=== PATIENT | male | born 1955 | race Asian ===

== ENCOUNTER 2017-06-14 10:11 | Emergency (ER) | payer OTHER ==
[2017-06-14 10:17] VITALS: BP 173/98; PULSE 81; TEMP 98.1; BMI 27.4
--- NOTE | 2017-06-14 10:23 | PDOC ---
History of Present Illness - General History Source: Patient Exam Limitations: No Limitations - History of Present Illness Initial Comments: 06/14/17 10:58 The patient is a 61 year old male with a significant past medical history of CABG, HTN, HLD, who presents to the ED with right sided rib pain and back pain since last week. Patient states he was at work last week when he fell off a ladder and lost consciousness. He denies head pain, neck pain. He went to the hospital but doesn't remember what tests were done on him. Patient denies chest pain, SOB, fever, chills, nausea, vomiting, diarrhea. Patient works as an electrical wiring lineman. Patient Smokes cigarettes. Patient denies drug use. Patient occasionally drinks alcohol. <Bahman Nguyen - Last Filed: 06/14/17 12:35> <Bj Dickerson - Last Filed: 06/14/17 12:59> - General Chief Complaint: Chest Pain Stated Complaint: SIDE PAIN Time Seen by Provider: 06/14/17 10:22 Past History <Bahman Nguyen - Last Filed: 06/14/17 12:35> - Past Medical History Cardiac Disorders: Yes (TRIPLE BYPASS) HTN: Yes - Surgical History Cardiac Surgery: Yes (CABG) - Psycho/Social/Smoking Cessation Hx Anxiety: No Suicidal Ideation: No Smoking Status: Yes Smoking History: Current every day smoker Have you smoked in the past 12 months: Yes Number of Cigarettes Smoked Daily: 20 Information on smoking cessation initiated: No 'Breaking Loose' booklet given: 06/10/15 Hx Alcohol Use: No Substance Use Type: None <Bj Dickerson - Last Filed: 06/14/17 12:59> - Past Medical History Allergies/Adverse Reactions: Allergies Allergy/AdvReac Type Severity Reaction Status Date / Time clindamycin AdvReac Intermediate Verified 06/14/17 10:17 Home Medications: Ambulatory Orders Aspirin [ASA -] 81 mg PO DAILY 04/21/16 Amlodipine Besylate [Norvasc -] 2.5 mg PO DAILY 06/14/17 Atorvastatin Ca [Lipitor] 40 mg PO DAILY 06/14/17 Ibuprofen [Motrin -] 600 mg PO QID #28 tablet 06/14/17 Metoprolol Succinate [Toprol Xl] 50 mg PO DAILY 06/14/17 Naproxen [Naprosyn -] 500 mg PO BID 06/14/17 Review of Systems - Review of Systems Able to Perform ROS?: Yes Comments:: 06/14/17 10:59 GENERAL/CONSTITUTIONAL: No fever or chills. No weakness. HEAD, EYES, EARS, NOSE AND THROAT: No change in vision. No ear pain or discharge. No sore throat. CARDIOVASCULAR: No chest pain or shortness of breath. RESPIRATORY: No cough, wheezing, or hemoptysis. GASTROINTESTINAL: No nausea, vomiting, diarrhea or constipation. GENITOURINARY: No dysuria, frequency, or change in urination. MUSCULOSKELETAL: + right sided rib pain. + back pain. No joint or muscle swelling or pain. No neck pain. SKIN: No rash NEUROLOGIC: No headache, vertigo, loss of consciousness, or change in strength/ sensation. ENDOCRINE: No increased thirst. No abnormal weight change. HEMATOLOGIC/LYMPHATIC: No anemia, easy bleeding, or history of blood clots. ALLERGIC/IMMUNOLOGIC: No hives or skin allergy. <Bahman Nguyen - Last Filed: 06/14/17 12:35> *Physical Exam - Vital Signs Last Vital Signs Temp Pulse Resp BP Pulse Ox 98.1 F 81 18 173/98 99 06/14/17 10:14 06/14/17 10:14 06/14/17 10:14 06/14/17 10:14 06/14/17 10:42 - Physical Exam Comments: 06/14/17 10:59 GENERAL: Awake, alert, and fully oriented, in no acute distress HEAD: No signs of trauma EYES: PERRLA, EOMI, sclera anicteric, conjunctiva clear ENT: Auricles normal inspection, hearing grossly normal, nares patent, oropharynx clear without exudates. Moist mucosa NECK: Normal ROM, supple, no lymphadenopathy, JVD, or masses LUNGS: Breath sounds equal, clear to auscultation bilaterally. No wheezes, and no crackles HEART: Regular rate and rhythm, normal S1 and S2, no murmurs, rubs or gallops RIBS: Tender to the right anterior and posterior ribs 2 through 5. ABDOMEN: Soft, nontender, normoactive bowel sounds. No guarding, no rebound. No masses EXTREMITIES: Normal range of motion, no edema. No clubbing or cyanosis. No cords, erythema, or tenderness NEUROLOGICAL: Cranial nerves II through XII grossly intact. Normal speech, normal gait SKIN: Warm, Dry, normal turgor, no rashes or lesions noted. <Bahman Nguyen - Last Filed: 06/14/17 12:35> - Vital Signs Last Vital Signs Temp Pulse Resp BP Pulse Ox 98.1 F 81 18 173/98 99 06/14/17 10:14 06/14/17 10:14 06/14/17 10:14 06/14/17 10:14 06/14/17 10:14 <Bj Dickerson - Last Filed: 06/14/17 12:59> ED Treatment Course - RADIOLOGY Radiology Studies Ordered: 06/14/17 12:37 EXAM#: TYPE/EXAM: RESULT: [id number] RAD/RIBS RIGHT SIDE Right RIBS: Blunt trauma. Possible fracture or pneumothorax. Images of the right ribs reveals an acute fracture of the right sixth rib with other old rib deformities. A pneumothorax, pleural fluid or atelectasis is not seen. There are sternal sutures and degenerative spine changes. Impression: Acute right sixth rib anterior fracture. Previous OHS. Degenerative spine changes. Other old rib deformities. Reported By: <Bahman Nguyen - Last Filed: 06/14/17 12:35> *DC/Admit/Observation/Transfer - Attestations Scribe Attestion: 06/14/17 10:59 Documentation prepared by Bahman Nguyen, acting as medical instrument cable fabricator for Bj Dickerson MD/DO. <Bahman Nguyen - Last Filed: 06/14/17 12:35> - Attestations Physician Attestion: 06/14/17 10:22 I, Dr. Bj Dickerson, attest that this document has been prepared under my direction and personally reviewed by me in its entirety. I further attest, that it accurately reflects all work, treatment, procedures and medical decision -making performed by me. <Bj Dickerson - Last Filed: 06/14/17 12:59> Diagnosis at time of Disposition: Rib fracture Qualifiers: Encounter type: subsequent encounter Rib fracture type: single rib Fracture type: closed Laterality: right Fracture healing: with routine healing Qualified Code(s): S22.31XD - Fracture of one rib, right side, subsequent encounter for fracture with routine healing - Discharge Dispostion Disposition: HOME Condition at time of disposition: Good - Prescriptions Prescriptions: Ibuprofen [Motrin -] 600 mg PO QID #28 tablet - Referrals Referrals: Donte Vazquez MD [Primary Care Provider] - - Patient Instructions Printed Discharge Instructions: DI for Rib Fracture Additional Instructions: Mr Escobar - Sorry to tell you that you broke the sixth rib on the right side. It is going to take six months to heal. Use the incentive spirometer several times a day so that you do not get pneumonia. Use the motrin for pain. Return to us if worse. See your doctor this week. Off work for a few days. Best- Dr. Bj Dickerson - Post Discharge Activity Work/School Note: Back to Work
[2017-06-14] MEDS ORDERED: OXYCODONE/APAP 5/325MG COMBO TABLET PO ONE (10:54)
[2017-06-14] MEDS ORDERED: ONDANSETRON *ODT* 4 MG TABLET SL ONE (10:54)
[2017-06-14] MEDS ORDERED: OXYCODONE/APAP 5/325MG COMBO TABLET ONE (11:12)
[2017-06-14] MEDS ORDERED: ONDANSETRON *ODT* 4 MG TABLET ONE (11:12)
== END 2017-06-14 13:25 | disposition home or self-care (01) ==
LOC: JER 10:11
DX: S22.31XD Fracture of one rib, right side, subsequent encounter for fracture with routine healing (principal); W11.XXXD Fall on and from ladder, subsequent encounter; Y93.H3 Activity, building and construction; Y92.89 Other specified places as the place of occurrence of the external cause; Y99.0 Civilian activity done for income or pay
CPT/HCPCS: 71020-TC; 71101-TC-RT; 99284-25

== ENCOUNTER 2020-09-24 11:49 | Emergency (ER) | payer OTHER ==
[2020-09-24] MEDS ORDERED: ONDANSETRON 4 MG/2 ML VIAL IVPUSH ONE (11:51)
[2020-09-24] MEDS ORDERED: SODIUM CHLORIDE 0.9% 1000 ML INFUS.BAG IV ONE (11:51)
[2020-09-24] MEDS ORDERED: FAMOTIDINE 20 MG/50 ML IVPB 20 MG/50 ML MG IVPB ONE ×2 (11:51→12:10)
[2020-09-24] MEDS ORDERED: ASPIRIN 81 MG CHEWABLE TABLETS PO ONE (11:51)
[2020-09-24] MEDS ORDERED: CLOPIDOGREL BISULFATE 300 MG TABLET PO ONE (11:53)
[2020-09-24] MEDS ORDERED: HEPARIN NA (PORCINE) 5,000 UNITS/ML 1ML VIAL IVPUSH ONE (11:53)
[2020-09-24] MEDS ORDERED: ASPIRIN 81 MG CHEWABLE TABLETS ONE (11:54)
[2020-09-24] MEDS ORDERED: CLOPIDOGREL BISULFATE 300 MG TABLET ONE (11:54)
[2020-09-24] MEDS ORDERED: ONDANSETRON 4 MG/2 ML VIAL ONE (11:54)
[2020-09-24] MEDS ORDERED: ATORVASTATIN CA 80 MG TABLET (FP) PO ONE (11:57)
[2020-09-24 11:58] VITALS: BMI 25.8
[2020-09-24] MEDS ORDERED: HEPARIN NA (PORCINE) 5,000 UNITS/ML 1ML VIAL ONE (11:58)
[2020-09-24] MEDS ORDERED: ATORVASTATIN CA 80 MG TABLET (FP) ONE (11:58)
[2020-09-24] MEDS ORDERED: HEPARIN INFUSION - 25,000 UNITS/500 ML INFUS.BAG IVPB ONE (12:06)
[2020-09-24] MEDS ORDERED: morphine CARPU-JECT 2 MG/1 ML DISP.SYRIN IVPUSH ONE ×2 (12:15→12:22)
[2020-09-24] MEDS ORDERED: HEPARIN - 25,000 UNIT in SODIUM CHLORIDE 495 ML IV SCH (12:15)
[2020-09-24] MEDS ORDERED: morphine SULFATE 4 MG/ML VIAL ONE ×2 (12:15→12:24)
--- NOTE | 2020-09-24 12:15 | PDOC ---
History of Present Illness - General Chief Complaint: Chest Pain Stated Complaint: CHEST PAIN Time Seen by Provider: 09/24/20 11:50 - History of Present Illness Initial Comments: 09/24/20 11:55 65 year old male with a significant past medical history of TX s/p CABG (2008), HTN, HLD, presents with one hour of chest pain. Pain started when he was digging with a shovel, was reduced when he rested, but persisted. Substernal, radiating to both arms. Feels like prior TX. Associated with SOB and nausea, with one episode of NBNB emesis witness in ED. Follows at [facility]. ROS GENERAL/CONSTITUTIONAL: No fever or chills HEAD, EYES, EARS, NOSE AND THROAT: No change in vision. No ear pain CARDIOVASCULAR: chest pain and shortness of breath RESPIRATORY: No cough or hemoptysis. GASTROINTESTINAL: nausea, vomiting GENITOURINARY: No dysuria, frequency MUSCULOSKELETAL: No joint or muscle pain SKIN: No rash NEUROLOGIC: No headache or loss of consciousness ENDOCRINE: No increased thirst. No abnormal weight change HEMATOLOGIC/LYMPHATIC: No anemia, easy bleeding ALLERGIC/IMMUNOLOGIC: No hives or skin allergy. PE GENERAL: Awake, alert, and fully oriented, diaphoretic, pale, vomiting, SOB HEAD: No signs of trauma, normocephalic, atraumatic EYES: PERRLA, EOMI, sclera anicteric, conjunctiva clear ENT: Auricles normal inspection, hearing grossly normal, nares patent, oropharynx clear without exudates. Moist mucosa NECK: Normal ROM, supple, no lymphadenopathy, JVD, or masses LUNGS: mild distress, clear to auscultation bilaterally HEART: Regular rate and rhythm, normal S1 and S2, no murmurs, rubs or gallop ABDOMEN: Soft, nontender, normoactive bowel sounds. No guarding, no rebound. No masses EXTREMITIES : Normal inspection, Normal range of motion, no edema. No clubbing or cyanosis. NEUROLOGICAL: Normal speech, no focal sensorimotor deficits SKIN: Warm, diaphoretic, no rashes or lesions noted Vital Signs Temp Pulse Resp BP Pulse Ox 74 22 H 93/76 09/24/20 11:49 09/24/20 11:49 09/24/20 11:49 MDM: 65 year old male with a significant past medical history of TX s/p CABG (2008), HTN, HLD, presents with one hour of chest pain. Vitals notable for RR 22 and BP 93/76. Pulse on monitor drops to 50s and appears to be in 2nd degree AV block type I EKG at 12:50: 2nd degree AV block type I, rate 52, non-specific intraventricular block, ST elevation in aVR, ST depressions in I, V1-V6 R-sided EKG: at 12:56: NSR, rate 74, non-specific intraventricular block, ST elevation in aVR, ST depressions in Q3G-P6Z -EKG concerning for posterior wall TX -CBC, CMP, trops, coags CXR -1000 NS bolus ASA 324, plavix 300, lipitor 80, pepcid 20, zofran 4, morphine 2, heparin 5000 bolus and drip at -transfer to [facility]. Dr. Ayon spoke with the accepting facility 09/24/20 12:20 No improvement in chest pain, no continued vomiting Vital Signs - 8 hr 09/24/20 09/24/20 09/24/20 11:49 11:50 11:58 Pulse Rate 74 84 Pulse Rate [ 79 Apical] Respiratory 22 H 22 H Rate Blood Pressure 93/76 Blood Pressure 160/87 [Right Arm] O2 Sat by Pulse 100 Oximetry (%) 09/24/20 09/24/20 09/24/20 12:13 12:14 12:19 Pulse Rate 84 85 Pulse Rate [ 84 Apical] Respiratory 28 H 26 H Rate Blood Pressure 146/93 Blood Pressure 140/86 [Right Arm] O2 Sat by Pulse 99 99 Oximetry (%) Receiving doctor requests sublingual nitro and additional 2mg morphine CXR: no acute chest pathology Labs: pending 09/24/20 12:23 Patient transferred Past History - Medical History Allergies/Adverse Reactions: Allergies Allergy/AdvReac Type Severity Reaction Status Date / Time clindamycin AdvReac Intermediate Verified 09/24/20 12:18 Home Medications: Ambulatory Orders Aspirin [ASA -] 81 mg PO DAILY 04/21/16 Amlodipine Besylate [Norvasc -] 2.5 mg PO DAILY 06/14/17 Atorvastatin Ca [Lipitor] 40 mg PO DAILY 06/14/17 Ibuprofen [Motrin -] 600 mg PO QID #28 tablet 06/14/17 Metoprolol Succinate [Toprol Xl] 50 mg PO DAILY 06/14/17 Naproxen [Naprosyn -] 500 mg PO BID 06/14/17 Cardiac Disorders: Yes (TRIPLE BYPASS) HTN: Yes - Surgical History Cardiac Surgery: Yes (CABG) - Psycho-Social/Smoking History Smoking Status: Yes Smoking History: Current every day smoker Have you smoked in the past 12 months: Yes Number of Cigarettes Smoked Daily: 20 'Breaking Loose' booklet given: 06/10/15 ED Treatment Course - LABORATORY CBC & Chemistry Diagram: 09/24/20 12:05 Medical Decision Making - Critical Care Time Total Critical Care Time (minutes): 35 Critical Care Statement: The care of this patient involved high complexity decision making to prevent further life threatening deterioration of the patient's condition and/or to evaluate & treat vital organ system(s) failure or risk of failure. Discharge - Discharge Information Problems reviewed: Yes Clinical Impression/Diagnosis: STEMI (ST elevation myocardial infarction) Condition: Critical Disposition: TRANSFER ACUTE CARE/OTHER HOSP - Follow up/Referral - Patient Discharge Instructions - Post Discharge Activity
--- NOTE | 2020-09-24 12:18 | PDOC ---
Attending Attestation - Resident Resident Name: Hitesh Celeste - ED Attending Attestation I have performed the following: I have examined & evaluated the patient, The case was reviewed & discussed with the resident, I agree w/resident's findings & plan, Exceptions are as noted - HPI HPI: 09/24/20 12:05 65yo male with hx of cad, cabg, htn, hld presents for 1 hour of substernal cp. Cp is assoc with sob, diaphoresis, nausea and vomiting. Pt states he did not take his meds at home. Pt arrives dusky, actively vomiting, and in acute distress. - Physicial Exam PE: 09/24/20 12:07 Gen: diaphoretic, actively vomiting, dusky, pale heart: +s1s2 reg lungs: cta b/l abd: soft, nt/nd +bs ext: no c/c/e, pulses intact radial and pedal, diaphoretic, cool limbs - Critical Care Time Total Critical Care Time: 35 Critical Care Statement: The care of this patient involved high complexity decision making to prevent further life threatening deterioration of the patient's condition and/or to evaluate & treat vital organ system(s) failure or risk of failure. - Medical Decision Making 09/24/20 12:18 a/p: 65yo male with STEMI -asa, plavix, lipitor, heparin, zofran, pepcid ordered -ekg -hx of cabg at [facility], requests transfer back to [facility] -transfer center called, accepted by Dr. Power -discussed with Dr. Hoyt (fellow) -EKG sent, agrees with AVR stemi with posterior wall stemi, accepts in transfer under DR. Power and DR. Alfonso -requests heparin gtt as well -initially hypotensive 93 systolic with sinus rhythm that changes to 2nd degree av block, pads in place -still with pain, morphine 2mg given after repeat bp 146/93 09/24/20 12:20 critical care transfer team at the bedside 09/24/20 12:32 verbal consent for transfer from the patient 09/24/20 12:33 pt has left for [facility] with the critical care team Heart Score/ECG Review - ECG Intrepretation Comment:: 09/24/20 12:21 sinus sujey at 53, stemi avr with severe st depressions v2-v6, i, avl concerning for posterior wall OK and STEMI AVR 09/24/20 12:26 R sided shows elevated AVR and anterior lead depressions Discharge - Discharge Information Problems reviewed: Yes Clinical Impression/Diagnosis: STEMI (ST elevation myocardial infarction) Condition: Critical Disposition: TRANSFER ACUTE CARE/OTHER HOSP - Follow up/Referral - Patient Discharge Instructions - Post Discharge Activity - Transfer to Acute Care Facility Receiving Facility Name: [facility] [address] [facility] Accepting Physician:: DR. Power, Dr. Hoyt
--- OUTSIDE RECORDS SUMMARY | 2020-09-24 12:18 | XMS ---
:1955 Author Organization [facility] Support Name Relationship Address Phone [employer] Unavailable [address] [phone] [place] [address] ELVIN GALAN DAUGHTER [address] [address] [place] [address] UNK Unavailable Unavailable Unavailable MC GALAN [address] [phone] [place] [address] Re-disclosure Warning The records that you are about to access may contain information from federally- assisted alcohol or drug abuse programs. If such information is present, then the following federally mandated warning applies: This information has been disclosed to you from records protected by federal confidentiality rules (42 CFR part 2). The federal rules prohibit you from making any further disclosure of this information unless further disclosure is expressly permitted by the written consent of the person to whom it pertains or as otherwise permitted by 42 CFR part 2. A general authorization for the release of medical or other information is NOT sufficient for this purpose. The Federal rules restrict any use of the information to criminally investigate or prosecute any alcohol or drug abuse patient.The records that you are about to access may contain highly sensitive health information, the redisclosure of which is protected by Article 27-F of the [facility] Public Health law. If you continue you may haveaccess to information: Regarding HIV / AIDS; Provided by facilities licensed or operated by the [facility] Office of Mental Health; or Provided by the [facility] Office for People With Developmental Disabilities. If such information is present, then the following [facility] mandated warning applies: This information has been disclosed to you from confidential records which are protected by state law. State law prohibits you from making any further disclosure of this information without the specific written consent of the person to whom it pertains, or as otherwise permitted by law. Any unauthorized further disclosure in violation of state law may result in a fine or [place] health [facility] facility sentence or both. A general authorization for the release of medical or other information is NOT sufficient authorization for further disclosure. Insurance Providers Payer name Policy type Policy ID Covered Covered republican's Policy P kelvin / Coverage republican ID relationship to [employer] orm[employer] type [employer] [id number] [address] [place] [address] CAP
[2020-09-24 12:22] VITALS: BP 146/93; PULSE 85
[2020-09-24] MEDS ORDERED: NITROGLYCERIN SUBLINGUAL 1/150 0.4 MG TAB SL ONE (12:23)
[2020-09-24] MEDS ORDERED: NITROGLYCERIN SUBLINGUAL 1/150 0.4 MG TAB ONE (12:27)
[2020-09-24 12:33] LABS: BASO % 0.5 % (0-2.0); EOS % 0.4 % (0-4.5); HEMATOCRIT 53.6 % (35.4-49); LYMPH % 25.8 % (8-40); MCH 29.4 pg (25.7-33.7); MCHC 31.8 g/dl (32.0-35.9); MEAN CELL VOLUME 92.5 fl (80-96); MEAN PLT VOLUME 10.5 fl (7.5-11.1); NEUT % 66.3 % (42.8-82.8); PLATELET COUNT 308 K/MM3 (134-434); RDW 13.9 % (11.9-15.9); WHITE BLOOD COUNT 13.9 K/mm3 (4.0-10.8)
--- NOTE | 2020-09-25 10:37 | EKG ---
Test Reason : Blood Pressure : / mmHG Vent. Rate : 053 BPM Atrial Rate : 053 BPM P-R Int : 178 ms QRS Dur : 116 ms QT Int : 476 ms P-R-T Axes : 068 087 152 degrees QTc Int : 446 ms SINUS BRADYCARDIA MARKED ST ABNORMALITY, POSSIBLE INFERIOR SUBENDOCARDIAL INJURY MARKED ST ABNORMALITY, POSSIBLE ANTEROSEPTAL SUBENDOCARDIAL INJURY ABNORMAL ECG WHEN COMPARED WITH ECG OF 09-JAN-2016 20:32, QRS DURATION HAS INCREASED ST NOW DEPRESSED IN INFERIOR LEADS ST NOW DEPRESSED IN ANTEROLATERAL LEADS T WAVE INVERSION NO LONGER EVIDENT IN INFERIOR LEADS T WAVE INVERSION NOW EVIDENT IN LATERAL LEADS Confirmed by MD MALA, REG ([id number]) on 09/25/2020 10:36:48 AM Referred By: Confirmed By:REG MEDEIROS MD
== END 2020-09-24 12:30 | disposition short-term general hospital (02) ==
LOC: FER 11:49
PROC: 3E033GC Introduction of Other Therapeutic Substance into Peripheral Vein, Percutaneous Approach (ICD-10-PCS; principal; 2020-09-24)
PROC: 3E033GC Introduction of Other Therapeutic Substance into Peripheral Vein, Percutaneous Approach (ICD-10-PCS; 2020-09-24)
PROC: 3E033GC Introduction of Other Therapeutic Substance into Peripheral Vein, Percutaneous Approach (ICD-10-PCS; 2020-09-24)
PROC: 3E033NZ Introduction of Analgesics, Hypnotics, Sedatives into Peripheral Vein, Percutaneous Approach (ICD-10-PCS; 2020-09-24)
PROC: 3E033NZ Introduction of Analgesics, Hypnotics, Sedatives into Peripheral Vein, Percutaneous Approach (ICD-10-PCS; 2020-09-24)
PROC: 3E033GC Introduction of Other Therapeutic Substance into Peripheral Vein, Percutaneous Approach (ICD-10-PCS; 2020-09-24)
DX: I21.3 ST elevation (STEMI) myocardial infarction of unspecified site (principal)
CPT/HCPCS: 36415; 71045-TC-FY; 85025; 93005; 99285-25; J1644

== ENCOUNTER 2020-11-09 10:53 | Inpatient (IN) | payer OTHER ==
[2020-11-09] MEDS ORDERED: LIDOCAINE HCL 2% JELLY (30 ML/TUBE) TP ONE (12:19)
[2020-11-09] MEDS ORDERED: LIDOCAINE HCL 2% JELLY (5 ML/TUBE) ONE (12:30)
[2020-11-09 13:04] LABS: BASO % 0.4 % (0-2.0); EOS % 1.3 % (0-4.5); HEMATOCRIT 35.5 % (35.4-49); HEMOGLOBIN 11.5 GM/dL (11.7-16.9); LYMPH % 16.3 % (8-40); MCH 29.8 pg (25.7-33.7); MCHC 32.3 g/dl (32.0-35.9); MEAN PLT VOLUME 10.7 fl (7.5-11.1); MONO % 6.1 % (3.8-10.2); NEUT % 75.9 % (42.8-82.8); PLATELET COUNT 248 K/MM3 (134-434); RBC 3.86 M/mm3 (4.00-5.60); RDW 15.3 % (11.9-15.9); WHITE BLOOD COUNT 12.5 K/mm3 (4.0-10.0)
[2020-11-09 13:05] LABS: INR 1.14 (0.83-1.09); PROTHROMBIN TIME (PATIENT) 13.7 SEC (9.7-13.0)
[2020-11-09 13:15] LABS: POTASSIUM 4.2 mmol/L (3.5-5.1)
[2020-11-09 13:17] LABS: ALBUMIN 2.7 g/dl (3.4-5.0); CALCIUM 8.6 mg/dL (8.5-10.1)
[2020-11-09 13:18] LABS: BLOOD UREA NITROGEN 17.8 mg/dL (7-18)
[2020-11-09 13:21] LABS: CREATININE 1.7 mg/dL (0.55-1.3)
[2020-11-09 13:22] LABS: BILIRUBIN,TOTAL 0.7 mg/dL (0.2-1); TOT PROT 7.3 g/dl (6.4-8.2)
[2020-11-09 13:26] LABS: N-TERMINAL BNP 2813.9 pg/ml (5-125)
[2020-11-09] MEDS: ATORVASTATIN CA 80 MG TABLET (FP) PO SCH (22:37)
[2020-11-09] MEDS: TICAGRELOR 90 MG TABLET PO SCH (22:37)
[2020-11-09] MEDS: SACUBITRIL/VALSARTAN 24 MG-26 MG TABLET PO SCH (22:37)
[2020-11-09] MEDS: CARVEDILOL 6.25 MG TABLET (FP) PO SCH (22:37)
[2020-11-10 03:06] VITALS: BMI 24.4
[2020-11-10 08:42] LABS: BASO % 0.8 % (0-2.0); EOS % 1.8 % (0-4.5); HEMATOCRIT 33.8 % (35.4-49); HEMOGLOBIN 10.9 GM/dL (11.7-16.9); LYMPH % 22.7 % (8-40); MCH 29.5 pg (25.7-33.7); MCHC 32.2 g/dl (32.0-35.9); MEAN CELL VOLUME 91.6 fl (80-96); MEAN PLT VOLUME 10.6 fl (7.5-11.1); NEUT % 66.7 % (42.8-82.8); PLATELET COUNT 190 K/MM3 (134-434); RBC 3.69 M/mm3 (4.00-5.60); RDW 15.2 % (11.9-15.9); WHITE BLOOD COUNT 8.6 K/mm3 (4.0-10.0)
[2020-11-10 09:03] LABS: POTASSIUM 3.7 mmol/L (3.5-5.1)
[2020-11-10 09:09] LABS: CALCIUM 8.5 mg/dL (8.5-10.1)
[2020-11-10 09:10] LABS: ALBUMIN 2.4 g/dl (3.4-5.0); BLOOD UREA NITROGEN 20.5 mg/dL (7-18); MAGNESIUM 2.2 mg/dL (1.8-2.4)
[2020-11-10 09:13] LABS: BILIRUBIN,TOTAL 0.8 mg/dL (0.2-1); CREATININE 1.5 mg/dL (0.55-1.3); PHOSPHOROUS 3.1 mg/dL (2.5-4.9); TOT PROT 6.3 g/dl (6.4-8.2)
[2020-11-10] MEDS: CARVEDILOL 6.25 MG TABLET (FP) PO SCH ×2 (09:21→21:20)
[2020-11-10] MEDS: ASPIRIN 81 MG CHEWABLE TABLETS PO SCH (09:21)
[2020-11-10] MEDS: ENOXAPARIN NA (PORCINE) 40 MG/0.4 ML DISP.SYRIN SQ SCH (09:21)
[2020-11-10] MEDS ORDERED: FUROSEMIDE 40 MG/4 ML INJECTABLE VIAL IVPUSH SCH (10:00)
[2020-11-10] MEDS ORDERED: PT OWN MED DRAWER 7, Y5N ONE ×3 (10:04→20:44)
[2020-11-10] MEDS: SACUBITRIL/VALSARTAN 24 MG-26 MG TABLET PO SCH ×2 (10:11→22:33)
[2020-11-10] MEDS: TICAGRELOR 90 MG TABLET PO SCH ×2 (10:11→22:33)
[2020-11-10] MEDS: HYDROCORTISONE 2.5% TOPICAL CREAM 30 GM TUBE TP SCH ×2 (14:33→22:33)
[2020-11-10] MEDS: ATORVASTATIN CA 80 MG TABLET (FP) PO SCH (21:20)
[2020-11-11] MEDS: HYDROCORTISONE 2.5% TOPICAL CREAM 30 GM TUBE TP SCH ×3 (06:53→21:03)
[2020-11-11 07:07] LABS: MAGNESIUM 2.1 mg/dL (1.8-2.4)
[2020-11-11 07:11] LABS: CREATININE 1.6 mg/dL (0.55-1.3)
[2020-11-11 07:35] LABS: BLOOD UREA NITROGEN 17.8 mg/dL (7-18); CALCIUM 8.1 mg/dL (8.5-10.1); POTASSIUM 3.8 mmol/L (3.5-5.1)
[2020-11-11 10:54] LABS: N-TERMINAL BNP 2427.8 pg/ml (5-125)
[2020-11-11] MEDS ORDERED: PT OWN MED DRAWER 7, Y5N ONE ×3 (10:57→19:30)
[2020-11-11] MEDS: ENOXAPARIN NA (PORCINE) 40 MG/0.4 ML DISP.SYRIN SQ SCH (11:02)
[2020-11-11] MEDS: CARVEDILOL 6.25 MG TABLET (FP) PO SCH ×2 (11:02→21:02)
[2020-11-11] MEDS: TICAGRELOR 90 MG TABLET PO SCH ×2 (11:02→21:02)
[2020-11-11] MEDS: ASPIRIN 81 MG CHEWABLE TABLETS PO SCH (11:02)
[2020-11-11] MEDS: SACUBITRIL/VALSARTAN 24 MG-26 MG TABLET PO SCH ×2 (11:02→21:02)
[2020-11-11] MEDS: FUROSEMIDE 20 MG TABLET (FP) PO SCH (11:02)
[2020-11-11 11:17] LABS: BASO % 1.3 % (0-2.0); EOS % 2.1 % (0-4.5); HEMATOCRIT 34.8 % (35.4-49); HEMOGLOBIN 11.1 GM/dL (11.7-16.9); LYMPH % 24.3 % (8-40); MCH 29.3 pg (25.7-33.7); MCHC 31.9 g/dl (32.0-35.9); MEAN CELL VOLUME 91.8 fl (80-96); MEAN PLT VOLUME 10.8 fl (7.5-11.1); MONO % 7.6 % (3.8-10.2); NEUT % 64.7 % (42.8-82.8); PLATELET COUNT 197 K/MM3 (134-434); RBC 3.79 M/mm3 (4.00-5.60); RDW 15.8 % (11.9-15.9); WHITE BLOOD COUNT 8.9 K/mm3 (4.0-10.0)
[2020-11-11 12:03] LABS: ANISOCYTOSIS 1+; MACROCYTOSIS 1+; PLATELET ESTIMATE NORMAL
[2020-11-11] MEDS: ALBUTEROL SO4 2.5/IPRATROPIUM 0.5 INH SOL 3 ML VIAL.NEB. NEB SCH ×2 (16:30→21:04)
[2020-11-11] MEDS: BUDESONIDE/FORMETEROL FUMARATE 160/4.5 mcg INHALER IH SCH (21:02)
[2020-11-11] MEDS: ATORVASTATIN CA 80 MG TABLET (FP) PO SCH (21:02)
[2020-11-12] MEDS: HYDROCORTISONE 2.5% TOPICAL CREAM 30 GM TUBE TP SCH (06:49)
[2020-11-12] MEDS: ALBUTEROL SO4 2.5/IPRATROPIUM 0.5 INH SOL 3 ML VIAL.NEB. NEB SCH ×2 (07:25→11:33)
[2020-11-12 08:01] LABS: BASO % 0.5 % (0-2.0); EOS % 2.6 % (0-4.5); HEMATOCRIT 34.3 % (35.4-49); HEMOGLOBIN 11.2 GM/dL (11.7-16.9); LYMPH % 26.5 % (8-40); MCHC 32.7 g/dl (32.0-35.9); MEAN CELL VOLUME 91.6 fl (80-96); MEAN PLT VOLUME 10.3 fl (7.5-11.1); MONO % 8.1 % (3.8-10.2); NEUT % 62.3 % (42.8-82.8); PLATELET COUNT 202 K/MM3 (134-434); RBC 3.74 M/mm3 (4.00-5.60); RDW 15.6 % (11.9-15.9)
[2020-11-12] MEDS ORDERED: PHENYLEPHRINE 0.25%/STARCH 1 EACH SUPP.RECT RC ONE (08:30)
[2020-11-12] MEDS ORDERED: PT OWN MED DRAWER 7, Y5N ONE ×2 (08:40→09:29)
[2020-11-12 08:57] VITALS: BP 98/59; PULSE 76; TEMP 98
[2020-11-12] MEDS: ASPIRIN 81 MG CHEWABLE TABLETS PO SCH (10:08)
[2020-11-12] MEDS: CARVEDILOL 6.25 MG TABLET (FP) PO SCH (10:08)
[2020-11-12] MEDS: FUROSEMIDE 20 MG TABLET (FP) PO SCH (10:08)
[2020-11-12] MEDS: TICAGRELOR 90 MG TABLET PO SCH (10:08)
[2020-11-12] MEDS: SACUBITRIL/VALSARTAN 24 MG-26 MG TABLET PO SCH (10:09)
[2020-11-12] MEDS: ENOXAPARIN NA (PORCINE) 40 MG/0.4 ML DISP.SYRIN SQ SCH (10:09)
[2020-11-12] MEDS: BUDESONIDE/FORMETEROL FUMARATE 160/4.5 mcg INHALER IH SCH (12:10)
[2020-11-12] MEDS ORDERED: IRON POLYSACCHARIDES 150 MG CAPSULE PO SCH (12:30)
[2020-11-12] MEDS ORDERED: guaiFENesin/D-M SUGAR-FREE/ACLHOL-FREE 118 ML BOTTLE PO PRN (12:33)
== END 2020-11-12 15:29 | disposition home or self-care (01) | DRG 144 ==
LOC: JER 10:53 → JERBED 14:33 → J4W 20:51
PROVIDERS: ADMIT Internal Medicine; ATTEND Family Medicine
DX: R06.02 Shortness of breath (principal); D72.829 Elevated white blood cell count, unspecified; I50.23 Acute on chronic systolic (congestive) heart failure; K64.4 Residual hemorrhoidal skin tags; I25.10 Atherosclerotic heart disease of native coronary artery without angina pectoris; I47.1 Supraventricular tachycardia; R94.31 Abnormal electrocardiogram [ECG] [EKG]; E78.5 Hyperlipidemia, unspecified; T45.525A Adverse effect of antithrombotic drugs, initial encounter; I11.0 Hypertensive heart disease with heart failure; J44.9 Chronic obstructive pulmonary disease, unspecified; D50.9 Iron deficiency anemia, unspecified; Z95.5 Presence of coronary angioplasty implant and graft; Z95.1 Presence of aortocoronary bypass graft
CPT/HCPCS: 36415; 71045-TC-FY; 80048; 80053; 80061; 82728; 83036; 83540; 83550; 83721; 83735; 83880; 84100; 84484; 85025; 85610; 85730; 87804; 93005; 93010; 93306-TC; 94640; 99285-25; C9803; U0003

== ENCOUNTER 2020-11-14 07:27 | Inpatient (IN) | payer OTHER ==
[2020-11-14 08:39] LABS: BASO % 0.4 % (0-2.0); EOS % 0.5 % (0-4.5); HEMATOCRIT 32.6 % (35.4-49); HEMOGLOBIN 10.4 GM/dL (11.7-16.9); LYMPH % 12.1 % (8-40); MCH 29.3 pg (25.7-33.7); MEAN CELL VOLUME 91.6 fl (80-96); MEAN PLT VOLUME 10.7 fl (7.5-11.1); MONO % 5.3 % (3.8-10.2); NEUT % 81.7 % (42.8-82.8); PLATELET COUNT 203 K/MM3 (134-434); RBC 3.56 M/mm3 (4.00-5.60); RDW 15.5 % (11.9-15.9)
[2020-11-14] MEDS ORDERED: ASPIRIN 325 MG ENTERIC COATED TABLET (FP) PO ONE (09:04)
[2020-11-14 09:08] LABS: POTASSIUM 3.9 mmol/L (3.5-5.1)
[2020-11-14] MEDS ORDERED: ASPIRIN 325 MG ENTERIC COATED TABLET (FP) ONE (09:08)
[2020-11-14 09:10] LABS: ALBUMIN 2.7 g/dl (3.4-5.0); BLOOD UREA NITROGEN 21.1 mg/dL (7-18); CALCIUM 8.3 mg/dL (8.5-10.1); MAGNESIUM 2.2 mg/dL (1.8-2.4)
[2020-11-14 09:13] LABS: CREATININE 1.8 mg/dL (0.55-1.3)
[2020-11-14 09:15] LABS: BILIRUBIN,TOTAL 0.7 mg/dL (0.2-1); TOT PROT 6.7 g/dl (6.4-8.2)
[2020-11-14 09:19] LABS: N-TERMINAL BNP 4096.5 pg/ml (5-125)
[2020-11-14] MEDS ORDERED: FUROSEMIDE 40 MG/4 ML INJECTABLE VIAL IVPUSH ONE ×2 (10:03→14:04)
[2020-11-14] MEDS ORDERED: FUROSEMIDE 40 MG/4 ML INJECTABLE VIAL ONE (10:09)
[2020-11-14 12:16] LABS: INR 1.18 (0.83-1.09); PROTHROMBIN TIME (PATIENT) 14.5 SEC (9.7-13.0)
[2020-11-14 15:33] LABS: EPI CELLS 1 /uL (0-25.1); HYALINE CASTS 0 /uL (0-3.1); URINE APPEARANCE CLEAR; URINE BACTERIA 49 /uL (0-1359); URINE BILIRUBIN NEGATIVE (NEGATIVE); URINE COLOR YELLOW; URINE GLUCOSE (UA) NEGATIVE (NEGATIVE); URINE KETONE NEGATIVE (NEGATIVE); URINE LEUK ESTERASE NEGATIVE (NEGATIVE); URINE NITRITE NEGATIVE (NEGATIVE); URINE PROTEIN NEGATIVE (NEGATIVE); URINE RBC 10 /uL (0-23.9); URINE UROBILINOGEN 0.2 mg/dL (0.2-1.0); URINE WBC 1 /uL (0-25.8)
[2020-11-14] MEDS: HYDROCORTISONE 2.5% TOPICAL CREAM 30 GM TUBE TP SCH ×2 (16:01→22:40)
[2020-11-14] MEDS ORDERED: TICAGRELOR 90 MG TABLET PO ONE (22:23)
[2020-11-14] MEDS ORDERED: ATORVASTATIN CA 80 MG TABLET (FP) ONE (22:23)
[2020-11-14] MEDS ORDERED: CARVEDILOL 3.125 MG TABLET (FP) ONE (22:23)
[2020-11-14] MEDS: CARVEDILOL 6.25 MG TABLET (FP) PO SCH (22:40)
[2020-11-14] MEDS: ATORVASTATIN CA 80 MG TABLET (FP) PO SCH (22:40)
[2020-11-14] MEDS: BUDESONIDE/FORMETEROL FUMARATE 160/4.5 mcg INHALER IH SCH (22:40)
[2020-11-14] MEDS: TICAGRELOR 90 MG TABLET PO SCH (22:40)
[2020-11-14] MEDS: SACUBITRIL/VALSARTAN 24 MG-26 MG TABLET PO SCH (23:59)
[2020-11-15] MEDS: HYDROCORTISONE 2.5% TOPICAL CREAM 30 GM TUBE TP SCH ×3 (06:42→21:11)
[2020-11-15 06:54] VITALS: BMI 24.3
[2020-11-15] MEDS ORDERED: PT OWN MED DRAWER 7, Y5N ONE ×3 (08:59→20:48)
[2020-11-15] MEDS: SACUBITRIL/VALSARTAN 24 MG-26 MG TABLET PO SCH ×2 (09:12→21:14)
[2020-11-15] MEDS: IRON POLYSACCHARIDES 150 MG CAPSULE PO SCH (09:12)
[2020-11-15] MEDS: BUDESONIDE/FORMETEROL FUMARATE 160/4.5 mcg INHALER IH SCH ×2 (09:12→21:14)
[2020-11-15] MEDS: ASPIRIN 81 MG CHEWABLE TABLETS PO SCH (09:12)
[2020-11-15] MEDS: CARVEDILOL 6.25 MG TABLET (FP) PO SCH ×2 (09:13→21:12)
[2020-11-15] MEDS: guaiFENesin/D-M SUGAR-FREE/ACLHOL-FREE 118 ML BOTTLE PO PRN ×2 (09:13→21:14)
[2020-11-15] MEDS: TICAGRELOR 90 MG TABLET PO SCH ×2 (11:53→21:12)
[2020-11-15] MEDS: FUROSEMIDE 40 MG/4 ML INJECTABLE VIAL IVPUSH SCH (11:53)
[2020-11-15 12:16] LABS: BASO % 0.4 % (0-2.0); EOS % 0.6 % (0-4.5); HEMATOCRIT 35.6 % (35.4-49); HEMOGLOBIN 11.5 GM/dL (11.7-16.9); LYMPH % 12.1 % (8-40); MCH 29.5 pg (25.7-33.7); MCHC 32.3 g/dl (32.0-35.9); MEAN CELL VOLUME 91.3 fl (80-96); MEAN PLT VOLUME 10.1 fl (7.5-11.1); MONO % 6.5 % (3.8-10.2); NEUT % 80.4 % (42.8-82.8); PLATELET COUNT 239 K/MM3 (134-434); RDW 15.8 % (11.9-15.9); WHITE BLOOD COUNT 10.6 K/mm3 (4.0-10.0)
[2020-11-15 12:35] LABS: POTASSIUM 4.2 mmol/L (3.5-5.1)
[2020-11-15 12:37] LABS: CALCIUM 8.5 mg/dL (8.5-10.1)
[2020-11-15 12:38] LABS: ALBUMIN 2.7 g/dl (3.4-5.0); BLOOD UREA NITROGEN 22.9 mg/dL (7-18); MAGNESIUM 2.3 mg/dL (1.8-2.4)
[2020-11-15 12:41] LABS: CREATININE 1.8 mg/dL (0.55-1.3); PHOSPHOROUS 2.9 mg/dL (2.5-4.9)
[2020-11-15 12:42] LABS: BILIRUBIN,TOTAL 0.9 mg/dL (0.2-1)
[2020-11-15 12:43] LABS: TOT PROT 7.1 g/dl (6.4-8.2)
[2020-11-15] MEDS ORDERED: DOCUSATE SODIUM 100 MG CAPSULE (FP) PO PRN (13:36)
[2020-11-15] MEDS: POLYETHYLENE GLYCOL 3350 119 GM BTL PO SCH (14:06)
[2020-11-15] MEDS: HYDROCORTISONE ACETATE 25 MG/SUPP.RECT RC SCH ×2 (14:06→21:11)
[2020-11-15] MEDS: ATORVASTATIN CA 80 MG TABLET (FP) PO SCH (21:14)
[2020-11-15] MEDS ORDERED: SENNOSIDES 8.6MG TABLET (FP) PO SCH (22:00)
[2020-11-16] MEDS: HYDROCORTISONE 2.5% TOPICAL CREAM 30 GM TUBE TP SCH ×2 (06:53→16:49)
[2020-11-16 07:47] LABS: BLOOD UREA NITROGEN 22.4 mg/dL (7-18); CALCIUM 8.2 mg/dL (8.5-10.1)
[2020-11-16 07:51] LABS: CREATININE 1.6 mg/dL (0.55-1.3)
[2020-11-16] MEDS ORDERED: PT OWN MED DRAWER 7, Y5N ONE (09:53)
[2020-11-16] MEDS: CARVEDILOL 6.25 MG TABLET (FP) PO SCH (10:21)
[2020-11-16] MEDS: HYDROCORTISONE ACETATE 25 MG/SUPP.RECT RC SCH (10:21)
[2020-11-16] MEDS: SACUBITRIL/VALSARTAN 24 MG-26 MG TABLET PO SCH (10:21)
[2020-11-16] MEDS: ASPIRIN 81 MG CHEWABLE TABLETS PO SCH (10:21)
[2020-11-16] MEDS: FUROSEMIDE 40 MG/4 ML INJECTABLE VIAL IVPUSH SCH (10:21)
[2020-11-16] MEDS: IRON POLYSACCHARIDES 150 MG CAPSULE PO SCH (10:21)
[2020-11-16] MEDS: TICAGRELOR 90 MG TABLET PO SCH (10:21)
[2020-11-16] MEDS: BUDESONIDE/FORMETEROL FUMARATE 160/4.5 mcg INHALER IH SCH (10:22)
[2020-11-16] MEDS: POLYETHYLENE GLYCOL 3350 119 GM BTL PO SCH (10:22)
[2020-11-16 15:19] VITALS: BP 96/51; PULSE 73; TEMP 97.8
== END 2020-11-16 16:51 | disposition home or self-care (01) | DRG 194 ==
LOC: JER 07:27 → JERBED 11:14 → J4W 11-15 05:13
PROVIDERS: ADMIT Family Medicine; ATTEND Family Medicine
DX: I13.0 Hypertensive heart and chronic kidney disease with heart failure and stage 1 through stage 4 chronic kidney disease, or unspecified chronic kidney disease (principal); I50.23 Acute on chronic systolic (congestive) heart failure; I25.10 Atherosclerotic heart disease of native coronary artery without angina pectoris; E78.5 Hyperlipidemia, unspecified; D64.9 Anemia, unspecified; R94.31 Abnormal electrocardiogram [ECG] [EKG]; N18.9 Chronic kidney disease, unspecified; N17.9 Acute kidney failure, unspecified; E83.51 Hypocalcemia; K59.00 Constipation, unspecified; Z95.1 Presence of aortocoronary bypass graft; Z95.5 Presence of coronary angioplasty implant and graft
CPT/HCPCS: 36415; 71045-TC-FY; 74018-TC-FY; 76775-TC; 80048; 80053; 81003; 82550; 82565; 82728; 83540; 83550; 83735; 83880; 84100; 84156; 84484; 84540; 85025; 85610; 93005; 93010; 99285-25; C9803; U0003